=== PATIENT | male | born 1935 | race Caucasian/White ===

== ENCOUNTER 2023-10-02 14:41 | Inpatient (IN) | payer MEDICARE ==
[2023-10-02 15:35] LABS: Bilirubin Neg (Negative); Blood, Urine 250 (Negative); Clarity Cloudy (Clear); Glucose, Urine (Dipstick) Normal (Negative); Ketone, Urine Negative (Negative); Leukocyte 500 (Negative); Nitrite Negative (Negative); Protein, Urine (Dipstick) 500 mg/dl (Neg-Trace); Specific Gravity, Urine 1.015 (1.005-1.030); Urobilinogen Normal mg/dL (Less than 2)
[2023-10-02 15:44] LABS: CAUTI Indications for Culture Alt mental st,lethar; WBC/HPF Greater than 50 HPF (0-3)
[2023-10-02 15:45] LABS: Bacteria/HPF 4+ HPF (None Seen)
[2023-10-02 15:46] LABS: Urine Culture Reflex Yes Yes
[2023-10-02 16:02] LABS: #Eosinphils 0.2 10x3/uL (0.0-0.5); #Monocytes 1.6 10x3/uL (0.0-1.1); #Neutrophils 7.1 10x3/uL (1.5-8.4); %Basophils 0.3 % (0.0-2.0); %Eosinophils 1.8 % (0.0-6.0); %Monocytes 14.6 % (0.0-10.0); %Neutrophils 63.7 % (40.0-75.0); Hematocrit 34.1 % (38.8-50.0); Hemoglobin 10.5 g/dL (13.5-17.5); Mean Corpuscular HGB CONC 30.8 g/dL (32.0-36.0); Mean Corpuscular Hemoglobin 29.5 pg (27.0-33.0); Mean Corpuscular Volume 95.8 fl (81.2-95.1); Mean Platelet Volume 8.9 fl (7.4-10.4); Platelet Count 310 10x3/uL (150-450); RBC Distribution Width 16.9 % (11.5-14.5); Red Blood Cell (RBC) Count 3.56 10x6/uL (4.32-5.72); White Blood Cell (WBC) Count 11.1 10x3/uL (3.5-10.5)
[2023-10-02] MEDS ORDERED: cefTRIAXone (ROCEPHIN) 1 GM VIAL ONE (16:13)
[2023-10-02 16:26] LABS: ALT (SGPT) 26 U/L (8-55); AST (SGOT) 15 U/L (5-34); Albumin 3.1 g/dL (3.4-4.8); Alkaline Phosphatase 75 U/L (40-110); Anion Gap 16 mmol/L (10-20); BUN (Urea Nitrogen) 33 mg/dL (8.4-25.7); Bilirubin, Total 0.3 mg/dL (0.2-1.2); Calc. Creatinine Clearance 0 mL/min (70-130); Calcium 8.8 mg/dL (7.8-10.44); Carbon Dioxide 23 mmol/L (23-31); Chloride 102 mmol/L (98-107); Estimated GFR 33; Globulin 3.7 g/dL (2.4-3.5); Glucose 105 mg/dL (83-110); Potassium 5.5 mmol/L (3.5-5.1); Protein, Total 6.8 g/dL (5.8-8.1); Sodium 135 mmol/L (136-145)
[2023-10-02 16:31] LABS: Troponin I Less than 0.010 ng/mL (< 0.028)
[2023-10-02 19:29] LABS: Lactic Acid 2.3 mmol/L (0.5-2.2)
[2023-10-02] MEDS ORDERED: Acetaminophen 325 MG TAB PO PRN (20:18)
[2023-10-02] MEDS ORDERED: Ondansetron PF 4 MG/2 ML Vial IVP PRN (20:18)
[2023-10-02] MEDS ORDERED: Calcium Carbonate 500 MG ChewTAB PO PRN (20:18)
[2023-10-02] MEDS ORDERED: Senokot S 8.6-50 MG TAB PO PRN (20:18)
[2023-10-02] MEDS ORDERED: Dextrose 50% Abboject 50 ML SYRINGE ONE (20:32)
[2023-10-02] MEDS ORDERED: Insulin Regular 300 UNITS/3 ML VIAL ONE (20:33)
[2023-10-02] MEDS ORDERED: Calcium Gluc 4.6 MEQ/10 ML (100 MG/ML) ONE (20:35)
[2023-10-02] MEDS ORDERED: LOKELMA 10 GM PACKET PO SCH (20:45)
[2023-10-02] MEDS ORDERED: Vancomycin 1 GM in Sodium Chloride 0.9% 250 ML 250 ML IVPB SCH (21:00)
[2023-10-02] MEDS ORDERED: Rosuvastatin 10 MG TAB PO SCH (21:45)
[2023-10-02] MEDS ORDERED: Apixaban 2.5 MG TAB PO SCH (21:45)
[2023-10-02] MEDS ORDERED: Famotidine 20 MG TAB PO SCH (21:45)
[2023-10-02] MEDS ORDERED: lamoTRIgine 100 MG TAB PO SCH (21:45)
[2023-10-02] MEDS ORDERED: Apixaban 2.5 MG TAB ONE (21:50)
[2023-10-02] MEDS ORDERED: Famotidine 20 MG TAB ONE (21:50)
[2023-10-02] MEDS ORDERED: ALPRAZolam 0.5 MG TAB ONE (21:59)
[2023-10-02] MEDS ORDERED: Vancomycin 1.5 GRAM/300 ML BAG 1.5 GM in Premix 1 BAG IVPB SCH (22:00)
[2023-10-02] MEDS ORDERED: Meropenem 1 GM in Sodium Chloride 0.9% 100 ML IVPB SCH (22:00)
[2023-10-02] MEDS ORDERED: Vancomycin 1 GM VIAL ONE (22:00)
[2023-10-02] MEDS: ALPRAZolam 0.25 MG TAB PO PRN (22:12)
[2023-10-02] MEDS: Sodium Chloride 0.9% 1,000 ML IV SCH (22:12)
[2023-10-02] MEDS ORDERED: Meropenem 1 GM VIAL ONE (22:14)
[2023-10-02] MEDS ORDERED: Vancomycin Dose by Levels Sliding Scale (Wt 71-99) FS SCH (22:15)
[2023-10-03 04:16] LABS: Lactic Acid 1.2 mmol/L (0.5-2.2)
[2023-10-03 04:19] LABS: #Eosinphils 0.3 10x3/uL (0.0-0.5); #Monocytes 1.5 10x3/uL (0.0-1.1); #Neutrophils 4.4 10x3/uL (1.5-8.4); %Basophils 0.2 % (0.0-2.0); %Eosinophils 3.2 % (0.0-6.0); %Monocytes 17.1 % (0.0-10.0); Hematocrit 28.1 % (38.8-50.0); Hemoglobin 8.8 g/dL (13.5-17.5); Mean Corpuscular HGB CONC 31.3 g/dL (32.0-36.0); Mean Corpuscular Hemoglobin 30.6 pg (27.0-33.0); Mean Corpuscular Volume 97.6 fl (81.2-95.1); Mean Platelet Volume 8.7 fl (7.4-10.4); Platelet Count 225 10x3/uL (150-450); RBC Distribution Width 16.7 % (11.5-14.5); Red Blood Cell (RBC) Count 2.88 10x6/uL (4.32-5.72); White Blood Cell (WBC) Count 8.7 10x3/uL (3.5-10.5)
[2023-10-03 04:20] LABS: Anion Gap 13 mmol/L (10-20); BUN (Urea Nitrogen) 25 mg/dL (8.4-25.7); CK (CPK) 22 U/L (30-200); Calc. Creatinine Clearance 0 mL/min (70-130); Carbon Dioxide 21 mmol/L (23-31); Chloride 108 mmol/L (98-107); Estimated GFR 60; Glucose 105 mg/dL (83-110); Potassium 4.5 mmol/L (3.5-5.1); Sodium 137 mmol/L (136-145)
[2023-10-03] MEDS ORDERED: Meropenem 1 GM VIAL ONE (05:09)
[2023-10-03] MEDS: Meropenem 1 GM in Sodium Chloride 0.9% 100 ML IVPB SCH ×2 (05:22→19:12)
[2023-10-03] MEDS ORDERED: Famotidine 20 MG TAB PO SCH (09:00)
[2023-10-03 09:38] VITALS: BMI 25.7
[2023-10-03] MEDS: Tamsulosin HCl 0.4 MG CAP PO SCH (10:03)
[2023-10-03] MEDS: Multivitamin W/ Minerals 1 TAB PO SCH (10:03)
[2023-10-03] MEDS: Apixaban 2.5 MG TAB PO SCH ×2 (10:04→20:13)
[2023-10-03] MEDS: Aspirin 81 mg Enteric Coated Tablet PO SCH (10:04)
[2023-10-03] MEDS: Ascorbic Acid 500 mg Chewable Tablet PO SCH (10:04)
[2023-10-03] MEDS: Sodium Chloride 0.9% 1,000 ML IV SCH ×2 (10:18→16:48)
[2023-10-03 12:26] LABS: Vancomycin, Random 11.6 ug/mL (See Comment)
[2023-10-03] MEDS ORDERED: Vancomycin 1.5 GRAM/300 ML BAG 1.5 GM in Premix 1 BAG IVPB SCH (13:00)
[2023-10-03] MEDS ORDERED: traMADol HCl 50 MG TAB PO PRN (14:50)
[2023-10-03] MEDS: Ferrous Sulfate 325 MG TAB PO SCH (16:44)
[2023-10-03] MEDS: Rosuvastatin 10 MG TAB PO SCH (20:13)
[2023-10-03] MEDS: OLANZapine 2.5 MG TAB PO SCH (20:13)
[2023-10-03] MEDS: lamoTRIgine 100 MG TAB PO SCH (20:13)
[2023-10-03] MEDS ORDERED: Citalopram 20 MG TAB PO SCH ×2 (21:00)
[2023-10-03] MEDS ORDERED: ALPRAZolam 0.5 MG TAB PO SCH (21:15)
[2023-10-04] MEDS: Meropenem 1 GM in Sodium Chloride 0.9% 100 ML IVPB SCH ×2 (05:30→17:04)
[2023-10-04] MEDS ORDERED: Vancomycin 1 GM in Sodium Chloride 0.9% 250 ML 250 ML IVPB SCH (08:00)
[2023-10-04 08:03] LABS: #Eosinphils 0.3 10x3/uL (0.0-0.5); #Monocytes 1.1 10x3/uL (0.0-1.1); #Neutrophils 3.3 10x3/uL (1.5-8.4); %Basophils 0.4 % (0.0-2.0); %Eosinophils 4.5 % (0.0-6.0); %Monocytes 16.3 % (0.0-10.0); %Neutrophils 49.4 % (40.0-75.0); Hematocrit 26.9 % (38.8-50.0); Hemoglobin 8.5 g/dL (13.5-17.5); Mean Corpuscular HGB CONC 31.6 g/dL (32.0-36.0); Mean Corpuscular Hemoglobin 30.6 pg (27.0-33.0); Mean Corpuscular Volume 96.8 fl (81.2-95.1); Mean Platelet Volume 9.2 fl (7.4-10.4); Platelet Count 210 10x3/uL (150-450); RBC Distribution Width 16.8 % (11.5-14.5); Red Blood Cell (RBC) Count 2.78 10x6/uL (4.32-5.72); White Blood Cell (WBC) Count 6.7 10x3/uL (3.5-10.5)
[2023-10-04] MEDS: Ferrous Sulfate 325 MG TAB PO SCH ×2 (08:12→17:04)
[2023-10-04] MEDS: Multivitamin W/ Minerals 1 TAB PO SCH (08:12)
[2023-10-04] MEDS: Citalopram 20 MG TAB PO SCH (08:12)
[2023-10-04] MEDS: Aspirin 81 mg Enteric Coated Tablet PO SCH (08:12)
[2023-10-04] MEDS: Ascorbic Acid 500 mg Chewable Tablet PO SCH (08:12)
[2023-10-04] MEDS: Tamsulosin HCl 0.4 MG CAP PO SCH (08:12)
[2023-10-04] MEDS: Apixaban 2.5 MG TAB PO SCH ×2 (08:13→21:29)
[2023-10-04 08:14] LABS: Anion Gap 13 mmol/L (10-20); BUN (Urea Nitrogen) 14 mg/dL (8.4-25.7); Calc. Creatinine Clearance 75 mL/min (70-130); Calcium 7.9 mg/dL (7.8-10.44); Carbon Dioxide 20 mmol/L (23-31); Chloride 111 mmol/L (98-107); Estimated GFR 85; Glucose 102 mg/dL (83-110); Sodium 139 mmol/L (136-145)
[2023-10-04] MEDS ORDERED: FLU VACC QS2023(65UP)/MF59C/PF 60 MCG/0.5 ML SYRINGE IM ONE (09:00)
[2023-10-04] MEDS ORDERED: Famotidine 20 MG TAB PO SCH (09:00)
[2023-10-04 09:12] LABS: Potassium 4.1 mmol/L (3.5-5.1)
[2023-10-04] MEDS ORDERED: TRIAZOLAM 0.25 MG PO SCH (21:00)
[2023-10-04] MEDS: Famotidine 20 MG TAB PO SCH (21:29)
[2023-10-04] MEDS: Rosuvastatin 10 MG TAB PO SCH (21:29)
[2023-10-04] MEDS: OLANZapine 2.5 MG TAB PO SCH (21:30)
[2023-10-04] MEDS: lamoTRIgine 100 MG TAB PO SCH (21:30)
[2023-10-05] MEDS: ALPRAZolam 0.25 MG TAB PO PRN ×2 (00:35→20:41)
[2023-10-05] MEDS: Meropenem 1 GM in Sodium Chloride 0.9% 100 ML IVPB SCH (05:34)
[2023-10-05] MEDS: Ascorbic Acid 500 mg Chewable Tablet PO SCH (08:44)
[2023-10-05] MEDS: Ferrous Sulfate 325 MG TAB PO SCH ×2 (08:44→16:46)
[2023-10-05] MEDS: Multivitamin W/ Minerals 1 TAB PO SCH (08:45)
[2023-10-05] MEDS: Famotidine 20 MG TAB PO SCH ×2 (08:45→20:33)
[2023-10-05] MEDS: Tamsulosin HCl 0.4 MG CAP PO SCH (08:45)
[2023-10-05] MEDS: Citalopram 20 MG TAB PO SCH (08:45)
[2023-10-05] MEDS: Apixaban 2.5 MG TAB PO SCH (08:45)
[2023-10-05] MEDS: Aspirin 81 mg Enteric Coated Tablet PO SCH (08:46)
[2023-10-05] MEDS ORDERED: LevoFLOXacin 500 MG TAB PO SCH (09:00)
[2023-10-05] MEDS: Rosuvastatin 10 MG TAB PO SCH (20:33)
[2023-10-05] MEDS: lamoTRIgine 100 MG TAB PO SCH (20:33)
[2023-10-05] MEDS: OLANZapine 2.5 MG TAB PO SCH (20:34)
[2023-10-05] MEDS: Apixaban 5 MG TAB PO SCH (20:34)
[2023-10-06] MEDS: LevoFLOXacin 500 MG TAB PO SCH (05:18)
[2023-10-06] MEDS: Multivitamin W/ Minerals 1 TAB PO SCH (08:47)
[2023-10-06] MEDS: Tamsulosin HCl 0.4 MG CAP PO SCH (08:47)
[2023-10-06] MEDS: Apixaban 5 MG TAB PO SCH ×2 (08:47→21:41)
[2023-10-06] MEDS: Famotidine 20 MG TAB PO SCH ×2 (08:47→21:41)
[2023-10-06] MEDS: Ferrous Sulfate 325 MG TAB PO SCH ×2 (08:47→17:13)
[2023-10-06] MEDS: Citalopram 20 MG TAB PO SCH (08:47)
[2023-10-06] MEDS: Ascorbic Acid 500 mg Chewable Tablet PO SCH (08:47)
[2023-10-06] MEDS: Aspirin 81 mg Enteric Coated Tablet PO SCH (08:47)
[2023-10-06] MEDS ORDERED: Sodium Chloride 0.9% 500 ML IV SCH (12:15)
[2023-10-06 12:51] LABS: #Eosinphils 0.2 10x3/uL (0.0-0.5); #Neutrophils 3.7 10x3/uL (1.5-8.4); %Basophils 0.3 % (0.0-2.0); %Eosinophils 2.6 % (0.0-6.0); %Lymphocytes 27.8 % (18.0-47.0); %Monocytes 14.6 % (0.0-10.0); %Neutrophils 54.3 % (40.0-75.0); Hematocrit 27.2 % (38.8-50.0); Hemoglobin 8.3 g/dL (13.5-17.5); Mean Corpuscular HGB CONC 30.5 g/dL (32.0-36.0); Mean Corpuscular Hemoglobin 29.7 pg (27.0-33.0); Mean Corpuscular Volume 97.5 fl (81.2-95.1); Mean Platelet Volume 8.7 fl (7.4-10.4); Platelet Count 204 10x3/uL (150-450); Red Blood Cell (RBC) Count 2.79 10x6/uL (4.32-5.72); White Blood Cell (WBC) Count 6.9 10x3/uL (3.5-10.5)
[2023-10-06 12:56] LABS: ALT (SGPT) 34 U/L (8-55); AST (SGOT) 28 U/L (5-34); Albumin 2.2 g/dL (3.4-4.8); Alkaline Phosphatase 58 U/L (40-110); Anion Gap 12 mmol/L (10-20); BUN (Urea Nitrogen) 14 mg/dL (8.4-25.7); Bilirubin, Total Less than 0.2 mg/dL (0.2-1.2); Calc. Creatinine Clearance 70 mL/min (70-130); Calcium 8.2 mg/dL (7.8-10.44); Carbon Dioxide 24 mmol/L (23-31); Chloride 108 mmol/L (98-107); Estimated GFR 82; Globulin 3.3 g/dL (2.4-3.5); Glucose 129 mg/dL (83-110); Potassium 4.8 mmol/L (3.5-5.1); Protein, Total 5.5 g/dL (5.8-8.1); Sodium 139 mmol/L (136-145)
[2023-10-06] MEDS: Sodium Chloride 0.9% 1,000 ML IV SCH (13:55)
[2023-10-06] MEDS: Albumin 25% 25 GM/100 ML BOT IVPB SCH (17:13)
[2023-10-06] MEDS: OLANZapine 2.5 MG TAB PO SCH (21:41)
[2023-10-06] MEDS: lamoTRIgine 100 MG TAB PO SCH (21:41)
[2023-10-06] MEDS: Rosuvastatin 10 MG TAB PO SCH (21:41)
[2023-10-07] MEDS: Albumin 25% 25 GM/100 ML BOT IVPB SCH ×3 (00:12→11:59)
[2023-10-07] MEDS: ALPRAZolam 0.25 MG TAB PO PRN ×2 (02:12→20:43)
[2023-10-07] MEDS: LevoFLOXacin 500 MG TAB PO SCH (05:20)
[2023-10-07] MEDS: Sodium Chloride 0.9% 1,000 ML IV SCH ×2 (05:20→20:44)
[2023-10-07] MEDS: Multivitamin W/ Minerals 1 TAB PO SCH (08:28)
[2023-10-07] MEDS: Apixaban 5 MG TAB PO SCH ×2 (08:28→20:44)
[2023-10-07] MEDS: Citalopram 20 MG TAB PO SCH (08:28)
[2023-10-07] MEDS: Ascorbic Acid 500 mg Chewable Tablet PO SCH (08:28)
[2023-10-07] MEDS: Famotidine 20 MG TAB PO SCH ×2 (08:29→20:43)
[2023-10-07] MEDS: Aspirin 81 mg Enteric Coated Tablet PO SCH (08:29)
[2023-10-07] MEDS: Ferrous Sulfate 325 MG TAB PO SCH ×2 (08:29→16:52)
[2023-10-07] MEDS: OLANZapine 2.5 MG TAB PO SCH (20:44)
[2023-10-07] MEDS: Rosuvastatin 10 MG TAB PO SCH (20:44)
[2023-10-08] MEDS: LevoFLOXacin 500 MG TAB PO SCH (05:13)
[2023-10-08] MEDS: Citalopram 20 MG TAB PO SCH (09:31)
[2023-10-08] MEDS: Ferrous Sulfate 325 MG TAB PO SCH ×2 (09:31→17:11)
[2023-10-08] MEDS: Apixaban 5 MG TAB PO SCH ×2 (09:31→21:37)
[2023-10-08] MEDS: Multivitamin W/ Minerals 1 TAB PO SCH (09:31)
[2023-10-08] MEDS: Saccharomyces boulardii 250 MG CAP PO SCH ×2 (09:32→21:37)
[2023-10-08] MEDS: Aspirin 81 mg Enteric Coated Tablet PO SCH (09:32)
[2023-10-08] MEDS: Famotidine 20 MG TAB PO SCH ×2 (09:32→21:37)
[2023-10-08] MEDS: Ascorbic Acid 500 mg Chewable Tablet PO SCH (09:32)
[2023-10-08] MEDS ORDERED: Midodrine HCl 2.5 MG TAB PO SCH (16:00)
[2023-10-08] MEDS: Sodium Chloride 0.9% 1,000 ML IV SCH (17:11)
[2023-10-08] MEDS: OLANZapine 2.5 MG TAB PO SCH (21:37)
[2023-10-08] MEDS: Rosuvastatin 10 MG TAB PO SCH (21:37)
[2023-10-08] MEDS: Midodrine HCl 5 MG TAB PO SCH (21:38)
[2023-10-08] MEDS: ALPRAZolam 0.25 MG TAB PO PRN (21:46)
[2023-10-09] MEDS: Midodrine HCl 5 MG TAB PO SCH (10:46)
[2023-10-09] MEDS: Famotidine 20 MG TAB PO SCH (10:46)
[2023-10-09] MEDS: Citalopram 20 MG TAB PO SCH (10:46)
[2023-10-09] MEDS: Multivitamin W/ Minerals 1 TAB PO SCH (10:46)
[2023-10-09] MEDS: Saccharomyces boulardii 250 MG CAP PO SCH (10:47)
[2023-10-09] MEDS: Apixaban 5 MG TAB PO SCH (10:47)
[2023-10-09] MEDS: Aspirin 81 mg Enteric Coated Tablet PO SCH (10:47)
[2023-10-09] MEDS: Ascorbic Acid 500 mg Chewable Tablet PO SCH (10:47)
[2023-10-09] MEDS: Ferrous Sulfate 325 MG TAB PO SCH (10:49)
[2023-10-09 16:39] VITALS: BP 115/61; TEMP 98.2
== END 2023-10-09 16:42 | DRG 683 ==
LOC: CSHERS 14:41 → CSHERHOLD 20:18 → CSHIMCU 10-03 08:41 → CSHTELE 10-06 14:39
PROVIDERS: ADMIT Student in an Organized Health Care Education/Training Program; ATTEND Internal Medicine
PROC: 3E03329 Introduction of Other Anti-infective into Peripheral Vein, Percutaneous Approach (ICD-10-PCS; principal; 2023-10-02)
PROC: 30233J1 Transfusion of Nonautologous Serum Albumin into Peripheral Vein, Percutaneous Approach (ICD-10-PCS; 2023-10-06)
DX: N17.9 Acute kidney failure, unspecified (principal); D84.9 Immunodeficiency, unspecified; E87.20 Acidosis, unspecified; K50.90 Crohn's disease, unspecified, without complications; T83.510A Infection and inflammatory reaction due to cystostomy catheter, initial encounter; N39.0 Urinary tract infection, site not specified; Z66 Do not resuscitate; E87.5 Hyperkalemia; F31.9 Bipolar disorder, unspecified; R53.81 Other malaise; I95.1 Orthostatic hypotension; E78.5 Hyperlipidemia, unspecified; F39 Unspecified mood [affective] disorder; D64.9 Anemia, unspecified; R29.6 Repeated falls; N40.1 Benign prostatic hyperplasia with lower urinary tract symptoms; E88.09 Other disorders of plasma-protein metabolism, not elsewhere classified; Z96.642 Presence of left artificial hip joint; Z79.899 Other long term (current) drug therapy; Z79.82 Long term (current) use of aspirin; Z86.711 Personal history of pulmonary embolism; Z90.89 Acquired absence of other organs; Z90.49 Acquired absence of other specified parts of digestive tract; Z82.49 Family history of ischemic heart disease and other diseases of the circulatory system
CPT/HCPCS: 36415; 71045; 76770; 80048; 80053; 80202; 81001; 82533; 82550; 83605; 84145; 84484; 85025; 87040; 87077; 87086; 87149; 93005; 93306; 96361; 96365; 96366; 96375; J0612; J0696; J1815; J2185; J3370; J3490; J7030; J7050; J7999; P9047